=== PATIENT | male | born 1975 | race Caucasian/White ===

== ENCOUNTER 2023-06-30 08:41 | Day surgery (SDC) | payer OTHER ==
[2023-06-15 15:21] LABS: BASOPHILS # (AUTO) 0.1 X10'3 (0-0.2); BASOPHILS % (AUTO) 1.3 % (0-1); EOSINOPHILS # (AUTO) 0.4 X10'3 (0-0.9); EOSINOPHILS % (AUTO) 3.9 % (0-6); LYMPHOCYTES # (AUTO) 1.8 X10'3 (1.1-4.8); LYMPHOCYTES % (AUTO) 17.8 % (21-51); MEAN CORPUSCULAR HEMOGLOBIN 30.6 PG (27.0-31.0); MEAN CORPUSCULAR HGB CONC 34.2 g/dL (33.0-36.5); MEAN CORPUSCULAR VOLUME 89.4 FL (78-98); MEAN PLATELET VOLUME 7.4 FL (7.4-10.4); MONOCYTES # (AUTO) 0.9 X10'3 (0-0.9); MONOCYTES % (AUTO) 9.2 % (2-12); NEUTROPHILS # (AUTO) 6.9 X10'3 (1.8-7.7); NEUTROPHILS % (AUTO) 67.8 % (42-75); PRE OP HEMATOCRIT 45.1 % (42.0-52.0); PRE OP HEMOGLOBIN 15.5 g/dL (14.0-17.9); PRE OP PLATELET COUNT 403 X10'3 (140-440); PRE OP WHITE BLOOD COUNT 10.2 10'3 (4.8-10.8); RED BLOOD COUNT 5.05 X10'6 (4.70-6.10); RED CELL DISTRIBUTION WIDTH 14.7 % (11.5-14.5)
[2023-06-15 15:36] LABS: ALBUMIN 3.9 G/DL (3.4-5.0); ALBUMIN/GLOBULIN RATIO 1.3 (1.1-1.5); ALKALINE PHOSPHATASE 69 IU/L (46-116); BLOOD UREA NITROGEN 10 MG/DL (7-18); BUN/CREATININE RATIO 11.2 (10.0-20.0); CALCIUM 8.9 MG/DL (8.5-10.1); CHLORIDE 101 MMOL/L (99-107); CREATININE 0.89 MG/DL (0.60-1.10); PRE OP ALT 21 U/L (30-65); PRE OP ANION GAP 6 (8-16); PRE OP AST 16 U/L (10-37); PRE OP BILIRUB, TOTAL 0.6 MG/DL (0.0-1.0); PRE OP GLUCOSE 112 MG/DL (70-104); PRE OP POTASSIUM 3.8 MMOL/L (3.4-5.1); PRE OP SODIUM 134 MMOL/L (135-145); TOTAL CARBON DIOXIDE 27.1 MMOL/L (24-32); TOTAL PROTEIN 6.9 G/DL (6.4-8.2); eGFR > 90 ML/MIN
[2023-06-30] VITALS (10 sets, daily range): BP systolic 112–149; BP diastolic 80–94; PULSE 65–72; RESP 12–18; TEMP 97.5; O2SAT 96–99
[~2023-06-30] VITALS: Ht 177.8 cm; Wt 95.3 kg
[~2023-06-30 08:41] MED LIST: ALBU90AE INH; AMIT10TA6 PO; AZEL30SP3 BOTHNARES; DICL20GE TOP; FLUT16SP13 BOTHNARES; HYDR-3973 PO; LEVO75TA PO; LORA10TA7 PO; MONT-47 PO; PANT-47 PO; albuterol 2.5 MG/3 ML nebule NEB ONE; cefazolin 2gm/D5W 100mL 100 ML IV ONE; famotidine 20mg tablet PO ONE; ringers solution, lacted 1,000 ML IV SCH
[2023-06-30] MEDS ORDERED: BUPIVAcaine/PF 2.5mg/ml (0.25%) 10ml vial ONE (10:47)
[2023-06-30] MEDS ORDERED: midazolam 1 mg/ML 2ml injection ONE ×2 (10:59→11:00)
[2023-06-30] MEDS ORDERED: fentaNYL/PF 50MCG/1 ML 2ML syringe ONE (10:59)
[2023-06-30] MEDS ORDERED: LIDOcaine 0.5% (5mg/ml) 50ml vial ONE (11:03)
[2023-06-30] MEDS ORDERED: BUPIVAcaine/PF 2.5mg/ml (0.25%) 10ml vial IJ ONE (11:24)
--- NOTE | 2023-06-30 11:36 | NUR ---
Received from OR via [facility], accompanied by Anesthesiologist EDINSON and report given by Anesthesiologist. PATIENT AWAKE, NO S/S OF PAIN, V/S WNL, PIV 20G TO L HAND, RIGHT WRIST DRESSING CDI. ICE AND ELEVATED RUE. Addendum: 06/30/23 at 1201 by Corrine Fish RN Amended: Links added.
--- NOTE | 2023-06-30 12:26 | NUR ---
PATIENT A&OX4, DENIES PAIN, V/S WNL, 20G PIV TO CARLOSE D/C, RIGHT WRIST DRESSING CDI. ICE AND ELEVATED RUE. I HAVE REVIEWED D/C INSTRUCTIONS WITH PATIENT and they have verbalized understanding patient d/c home with all belongings and family gave transport home. Addendum: 06/30/23 at 1246 by Corrine Fish RN Amended: Links added.
== END 2023-06-30 12:26 | disposition home or self-care (01) ==
LOC: PAS 08:41
PROVIDERS: ATTEND Orthopaedic Surgery Hand Surgery
DX: S63.501A Unspecified sprain of right wrist, initial encounter (principal); E03.9 Hypothyroidism, unspecified; K21.9 Gastro-esophageal reflux disease without esophagitis; G47.33 Obstructive sleep apnea (adult) (pediatric); J45.909 Unspecified asthma, uncomplicated; I25.2 Old myocardial infarction; F17.200 Nicotine dependence, unspecified, uncomplicated; Z79.890 Hormone replacement therapy; Z79.899 Other long term (current) drug therapy; Z79.891 Long term (current) use of opiate analgesic; Z98.890 Other specified postprocedural states; Z88.8 Allergy status to other drugs, medicaments and biological substances; Z80.42 Family history of malignant neoplasm of prostate; X58.XXXA Exposure to other specified factors, initial encounter; Y93.89 Activity, other specified; Y92.89 Other specified places as the place of occurrence of the external cause; Y99.8 Other external cause status
CPT/HCPCS: 29846; 36415; 80053; 82948; 85025; 93005; 94640; 94760; J0690; J2250; J3010; J3490; J7030; J7120; Z7506; Z7512; A4215; A4618; A7000